=== PATIENT | male | born 1975 | race Hispanic/Latino ===

== ENCOUNTER 2017-06-20 09:53 | Day surgery (SDC) | payer OTHER ==
[2017-06-13 09:51] VITALS: BMI 36.5
[2017-06-20] MEDS ORDERED: Midazolam 2 MG/2 ML VIAL ONE (12:34)
[2017-06-20] MEDS ORDERED: Propofol 10 mg/ml Inj (20 ML) ONE (12:34)
[2017-06-20] MEDS ORDERED: ceFAZolin IV 1 gm in Dextrose 2 GM/100 ML BAG IVPB ONE (12:41)
[2017-06-20] MEDS ORDERED: Rocuronium 10 mg/ml (5 ml) ONE ×2 (12:42→13:29)
[2017-06-20] MEDS ORDERED: ePHEDrine 50 mg/ml Inj ONE (13:30)
[2017-06-20] MEDS ORDERED: Neostigmine Methylsulfate 3mg/3ml Syringe IV ONE (15:57)
[2017-06-20] MEDS ORDERED: EPINEPHrine 1 mg/ml (1:1000) Inj ONE (15:57)
[2017-06-20] MEDS: HYDROmorphone 0.5 mg/0.5 ml ISec IVP PRN ×3 (16:35→17:08)
[2017-06-20] MEDS ORDERED: Bupivacaine HCl 0.5% PF (10 ml) Inj ONE ×2 (17:38→17:39)
[2017-06-20] MEDS ORDERED: Lidocaine 2% Inj (20ml) ONE (17:39)
--- NOTE | 2017-06-20 17:56 | PCM.ANESB1 ---
Interscalene Block - Brachial Plexus Date of Procedure: 06/20/17 Anesthesiologist: fatou Pre-Procedure Diagnosis: s/p left shoulder scope Post-Procedure Diagnosis: same Procedure Performed: Interscalene Block of Brachial Plexus Left - Procedure Interscalene Block of Brachial Plexus: This procedure was explained to the patient that it is for post-operative pain management. Consent was obtained after a thorough discussion with the patient regarding the benefits and possible complications of local anesthetic block of the Brachial Plexus at the Interscalene area. The patient was brought to the Operating Room and standard monitors were applied. Time out was held with the circulating nurse to confirm the correct surgery and appropriate block. After applying Oxygen by nasal cannula and administering IV Sedation, the patient's head was gently rotated away from the _left operative shoulder and the anterior scalene groove was carefully palpated. The ultrasound transducer was then applied to the skin in the transverse plane and the brachial plexus was visualized lateral to the carotid artery and in between the anterior and middle scalene muscles. After identification,the anterior lateral portion of the neck was prepped with Betadine solution three times and Lidocaine 1% was injected subcutaneously for topical analgesia. At this point, a # 22 gauge Stimuplex 2 inches insulated needle was inserted into the interscalene groove and directed in a caudal and midline direction. The needle was inserted lateral to the ultrasound transducer in-plane towards the brachial plexus in a [id number] direction. Needle advancement was performed carefully under direct ultrasound visualization. Nerve stimulator was used and twitched of the affected extremity including the hand brachialis muscles, biceps and the deltoid was obtained at a current of _0.4____MA. After repeated negative aspiration,_5____cc of___0.5%__,__Bupivacaine were injected and this was followed with _15____cc of _0.5____% ___Bupivacaine__ . Under ultrasound guidance the local anesthetics were observed surrounding the roots of the brachial plexus. The needle was removed intact and sterile dressing was applied. The patient had stable vital signs, was conscious and in no apparent distress. The patient tolerated the interscalene block of the bracheal plexus well with stable vital signs and was prepared for subsequent surgery.
[2017-06-20 21:24] VITALS: BP 116/68; PULSE 77; RESP 15; TEMP 99; O2SAT 100
--- NOTE | 2017-06-25 22:56 | PCM.SURG1 ---
Surgeon's Initial Post Op Note - Surgeon's Notes Surgeon: Isabela Cornelius MD Hair And Makeup Designer: Nicolette Ayala PA-C Type of Anesthesia: General Endo, Block [facility] Pre-Operative Diagnosis: Left shoulder. #1 SLAP tear. #2 Biceps LH tendonopathy w/ instability. #3 partial rotator cuff tear. #4 subacromial bursitis and impingement. #5 synovitis Operative Findings: Left shoulder. #1 SLAP tear (type 2). #2 Biceps LH partial tear w/ instability (partial tear and anchor and throughout intra- articular portion). #3 anterior instability GH joint (anterior - inferior / Bankart labral tear with attenuated anterior capsule and IGHL). #4 partial rotator cuff tear (no tearing greater than 25% thickness). #5 subacromial bursitis and impingement. #5 synovitis (throughout entire GH joint) Post-Operative Diagnosis: Left shoulder. #1 SLAP tear (type 2). #2 Biceps LH partial tear w/ instability (partial tear and anchor and throughout intra- articular portion). #3 anterior instability GH joint (anterior - inferior / Bankart labral tear with attenuated anterior capsule and IGHL). #4 partial rotator cuff tear (no tearing greater than 25% thickness). #5 subacromial bursitis and impingement. #5 synovitis (throughout entire GH joint) Operation Performed: Left shoulder: #1 open subpect biceps long head tenodesis. #2 arthroscopic extensive debridement (including chondroplasty humeral head, extensive synovectomy, biceps tenotomy, debridement partial rotator cuff and subscap tendon tears). #3 arthroscopic anterior stabilization / capsulorrhaphy/ Bankart labral repair. #4 arthroscopic SLAP repair. #5 arthroscopic subacromial decompression w/ acromioplasty. #6 arthroscopic PRP injection intra-articular Specimen/Specimens Removed: specimen= none. complications= none. implants= Arthrex #1 biceps biocomposite tenodesis screw 7mm. #2 pushlock 2.9mm labral biocomposite anchors x3 for Bankart repair, x2 for SLAP repair, 5 total. #3 labral tape Estimated Blood Loss: EBL {In ML}: 10 Blood Products Given: N/A Drains Used: No Drains Post-Op Condition: Good Date of Surgery/Procedure: 06/20/17 Time of Surgery/Procedure: 17:00
--- NOTE | 2017-07-24 05:25 | OP ---
PROCEDURE DATE: 06/20/2017 PREOPERATIVE DIAGNOSES: Left shoulder, 1. SLAP tear. 2. 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 3. Partial rotator cuff tear. 4. Subacromial bursitis. 5. Subacromial impingement. 6. Synovitis throughout all aspects of glenohumeral joint. POSTOPERATIVE DIAGNOSES: Left shoulder, 1. SLAP tear type 2. 2. Long head biceps tendon partial tear with instability (partial tear at anchor and throughout intraarticular portion of tendon). 3. Anterior instability with glenohumeral joint subluxation (anterior-inferior/Bankart labral tear with attenuated anterior capsule and inferior glenohumeral ligament). 4. Partial rotator cuff tear (no tearing greater than 25% thickness). 5. Subacromial bursitis. 6. Subacromial impingement. 7. Synovitis (throughout entire glenohumeral joint). PROCEDURES: Left shoulder, 1. Open subpectoralis biceps long head tenodesis. 2. Arthroscopic extent of debridement (including chondroplasty humeral head, extensive synovectomy, biceps tenotomy, debridement of partial rotator cuff tear and subscapularis partial tear). 3. Arthroscopic anterior stabilization/capsulorrhaphy/Bankart labral repair. 4. Arthroscopic SLAP repair. 5. Arthroscopic subacromial decompression with acromioplasty. 6. Arthroscopic intraarticular PRP injection. SURGEON: Isabela Cornelius MD BLOCKER AUTOMATIC: Nicolette Ayala PA-C JUSTIFICATION FOR BLOCKER AUTOMATIC: Nicolette Ayala is a certified physician surgery assistant, whose skilled surgical service was an absolute necessity for successful completion of the procedure as he provided skilled surgical assistance with positioning of the patient, positioning of extremity, management of the surgical hui, retraction of the neurovascular structures, preparation of the proximal humerus, biceps tenodesis site, preparation of proximal long head biceps tendon, placement of fixation and finalization of biceps tenodesis, passes of suture and arthroscopic SLAP repair, passes of suture and placement of anchors for arthroscopic anterior stabilization/Bankart labral repair/capsulorrhaphy, handling of arthroscopic equipment and management of subacromial decompression and acromioplasty, extensive debridement, wound closure, placement and fitting of shoulder immobilizer sling. Nicolette Ayala was present for the entire case and was an absolute necessity for the successful completion of the procedure. TYPE OF ANESTHESIA: General endotracheal anesthesia with a postop regional nerve block placed by anesthesia staff in PACU. SPECIMENS: None. COMPLICATIONS: None. IMPLANTS: Arthrex, 1. Biceps biocomposite tenodesis screw, 7 mm in size. 2. PushLock 2.9 mm labral biocomposite anchors (three anchors used for Bankart repair/capsulorrhaphy/anterior stabilization, two anchors used for SLAP repair, 5 anchors in total with labral tape). ESTIMATED BLOOD LOSS: 10 mL. DRAINS: None. COMPLICATIONS: None. DISPOSITION: The patient was extubated and transferred to the PACU in stable condition and tolerated the procedure well. INDICATIONS FOR SURGERY: The patient is a 41-year-old male who is right-hand dominant, who presents to the office for the first time under my care with a past medical history of diabetes and hypertension, who presents to the office for the first time under my care on 04/14/2017 with left shoulder pain and dysfunction. This is a workmen's comp case with an injury at work that occurred on 03/26/2017. The patient works at the [employer]. He states that on 03/26/2017, he was at work at the [employer] when the doors opened up and he noticed that one was jammed. He attempted to free the jammed door by tugging on it which resulted in immediate 10/10 pain localized to the anterior and lateral aspects of his shoulder with a loud pop that he heard. The pain progressively worsened and he has had significant difficulty with ADLs and any use of the left arm since then. X-rays taken in the office on 04/14/2017 were negative for any fracture dislocation and no evidence of arthritis with no significant deformity or malalignments. He was referred for an MR arthrogram which was done at [facility] on 04/17/2017 which was read as, 1. Fraying and increased signal seen within and at the bursal aspect of the distal supraspinatus tendon suggestive for partial bursal surface fraying/tearing with an associate moderate tendinopathy. No evidence of gross full-thickness defect, tendon retraction, or muscle atrophy. 2. Increased signal within and at the undersurface of the distal infraspinatus tendon suggestive for articular surface fraying with a mild distal tendinopathy. No gross full-thickness defect, tendon retraction, or muscle atrophy. 3. [id number] distal subscapularis tendinopathy. No gross full-thickness defect, tendon retraction, or muscle atrophy. 4. Evaluation of glenoid labrum demonstrates fraying with increased signal at the level of the anterior labrum extending from its mid inferior aspect which may represent some partial tearing. Clinical correlation. Additional mild fraying at the level of the posterior-superior labrum. 5. Mild acromioclavicular joint space degenerative changes with joint space narrowing and bony hypertrophy. 6. On my review of the MRI, I noted that there was significant signal change within the substance of the proximal portion of the long head biceps tendon as well as the anterior capsule that did appear to be attenuated. 7. We started conservative treatment in the form of physical therapy and cortisone mixture injections done to the shoulder. On 04/28/2017 in my office, the patient underwent cortisone mixture injections at the subacromial space and the bicipital groove with near complete resolution of his pain immediately noted in the office that lasted a few weeks. He was referred to Physical Therapy which he was compliant with as well as antiinflammatory medication in the form of Mobic and antiinflammatory compound cream. Finally, after 2 months of conservative treatment and no overall improvement with the injections, only lasting a few weeks, the patient was very frustrated with his lack of progress and began to discuss surgical intervention. He is indicated for left shoulder surgery equal side, left shoulder arthroscopic extensor debridement, SLAP repair, possible rotator cuff repair, subacromial decompression with acromioplasty, open biceps tenodesis, and all related indicated procedures. The risks, benefits, and alternatives to the procedure were discussed at length with the patient with the risks included but not limited to infection, neurovascular damage, need for further surgery, failure of the repair, stiffness, development of chronic pain and disability, development of blood clots including DVT and PE, inability to return to preinjury level of activity and occupation, anesthesia reactions including . After answering all of his questions, he stated that he understood the risks and wished to proceed with surgery. He was referred to his primary care physician for preadmission testing and preoperative medical evaluation and the procedure was scheduled on 06/20/2017 at [facility]. He watched surgical animation videos and diagnosis animation videos at length and after answering all of his questions, states that he had a good understanding for the diagnosis as well as the procedures to be done. I reviewed at length with him the need for compliance with the postop rehabilitation protocol in order to maximize chance of having a successful outcome after surgery. PROCEDURE IN DETAIL: The patient was identified in the preoperative holding area and the left shoulder was marked for surgery. Once again, as described above, the risks, benefits, and alternatives of the procedure were discussed at length with the patient and informed consent was obtained. After brief discussion with anesthesia staff, perioperative IV antibiotics in the form of 2 g Ancef were administered, and the patient was taken to the operating room, placed on the well-padded operating room table with all bony prominences and superficial neurovascular structures well padded. An initial time-out was done with the surgeon, anesthesia staff, OR staff, all in agreement with the patient, procedure being done, and the extremity being operated on. General anesthesia was administered without difficulty or complication. Later, postoperatively in PACU, he received and underwent a postop regional nerve block as well for pain control. An examination under anesthesia was then carried out. Examination under Anesthesia: Left shoulder with full range of motion compared to contralateral shoulder. No warmth, no swelling, no erythema, skin intact. Significant anterior instability with ability to sublux the shoulder joint, grade 2 to 3, compared to the contralateral shoulder, with a positive sulcus sign. There was a palpable click at the anterior aspect of the shoulder within the bicipital groove with 90 degrees abduction and external rotation representing an unstable biceps tendon. Continuation of Procedure: With the help of anesthesia staff monitoring his hemodynamic status, the patient was brought into the upright position with all bony prominences and superficial neurovascular structures well padded in the beach-chair positioner. After we got our clearance from anesthesia staff that he was stable in the upright position, we then prepped and draped the left shoulder in sterile conditions. Final time-out was done with the surgeon, anesthesia staff, OR staff, all in agreement with the patient, procedure being done, and extremity being operated on. A 50 mL of normal saline were used to insufflate the glenohumeral joint. Posterior portal was created with stab incision through the skin, down to subcutaneous tissues down to the level of the capsule. Arthroscopic blunt trocar and cannula were inserted into the glenohumeral joint and insufflation with arthroscopic fluid was begun. Arthroscopic camera was inserted and with the use of spinal needle localization, the anterior-superior portal was created with stab incision through skin down to subcutaneous tissues down to the level of the capsule. An accessory cannula was inserted into the glenohumeral joint through the anterior portal and the joint was copiously irrigated for removal of synovial debris and better visualization. With the use of the arthroscopic probe, a diagnostic arthroscopy was then carried out. Diagnostic Arthroscopy: Attention was first turned towards the glenohumeral joint proper and the humeral head exhibited intact cartilage for the most part at its superior aspect, had a region of grade 1 to 2 chondromalacia with overlying fibrillated cartilage, but no full-thickness cartilage defect seen. The glenoid also exhibited mild grade 1 chondromalacia with no full-thickness defect seen, most notably at its most central aspect. Biceps tendon under careful evaluation exhibited significant partial tearing throughout its entire intraarticular course as well as at the biceps anchor where the tearing was the worst. The biceps tendon itself appeared to be completely subluxed out of the groove and did not move with the humeral head and external and internal rotation under direct arthroscopic visualization. The biceps tendon was indeed dislocated out of the bicipital groove. Rotator cuff exhibited partial tearing, but no full-thickness defect was seen with articular-sided partial tearing and fibrillation. Attention was then turned towards the axillary pouch, where no significant loose bodies were seen, but there was significant synovitis noted throughout the anterior, inferior, and superior aspects of the glenohumeral joint. At the posterior aspect of the humeral head, there did appear to be a small nondepressed Hill-Sachs cartilage injury pattern that would go along with a subluxation/dislocation event of the shoulder that possibly could be related to the date of injury at work with the mechanism that he describes. There was a positive drive through sign with complete anterior instability of the glenohumeral joint with attenuated anterior capsule and no visualized anterior-inferior labrum representing a complete Bankart labral tear. With the use of the arthroscopic probe, the Bankart labral tear was found to be scarred in on the anterior-inferior aspect of the glenoid rim and was reducible. All throughout the anterior capsule, was attenuated capsule tissue with a stretched out inferior glenohumeral ligament and as stated before, significant anterior instability. Arthroscopic Extensive Debridement: With the use of arthroscopic shaver and radiofrequency ablation, an extensive debridement of the glenohumeral joint was carried out including an extensive synovectomy of the anterior, inferior, and superior aspects of the glenohumeral joint while maintaining good hemostasis, removing all the inflamed synovial tissue. With the use of the arthroscopic shaver and radiofrequency ablation, a chondroplasty of the humeral head was carried out, establishing a smooth contour to the cartilage. With the use of arthroscopic shaver and radiofrequency ablation, a debridement of the partial rotator cuff tear was carried out removing the mechanical pain generator and fibrillated rotator cuff tissue on the articular surface of the rotator cuff. With the use of the scissor inserted through the arthroscopic portal, a biceps tenotomy was carried out. With the use of arthroscopic shaver and radiofrequency ablation, the bicipital anchor and remnant stump were debrided to smooth contour with the superior aspect of the labrum. Any fibrillated and complex tearing of the labrum whether it was the SLAP zone of injury or the Bankart zone of injury, were then carefully debrided and removed, leaving behind the healthy labral tissue that would be amenable to Bankart repair and SLAP repair in the upcoming dictation. Arthroscopic Anterior Stabilization/Capsulorrhaphy/Bankart Repair: With the use of the arthroscopic freer elevator, the underlying Bankart labral injury was freed from the anterior-inferior glenoid rim and grasped with the grasper and appeared to be reducible back to its ute position. The anterior-inferior capsule and inferior glenohumeral ligament appeared to be completely attenuated, but amenable to plication and capsulorrhaphy. With the use of the Arthrex suture passer, we were able to pass a wire around the freed up anterior-inferior labrum and capsule, and inferior glenohumeral ligament, advancing from the inferior position to a more superior position at the 6 o'clock position. Once the wire was passed around this zone of capsule, inferior glenohumeral ligament and anterior-inferior labrum, a labral tape was then passed around the soft tissue and a instructor pilot drill site was then passed at the 6 o'clock position on the glenoid base to place the Knotless 2.9 mm PushLock BioComposite anchor from Arthrex which was placed successfully with good tension achieved and a successful capsulorrhaphy/inferior glenohumeral ligament tightening/Bankart labral repair and anterior stabilization achieved at the 6 o'clock position. These steps were then repeated at the 7 o'clock position and the 8/9 o'clock position placing three anchors in total with their associated labral tapes advancing the inferior glenohumeral ligament and capsule tightening the anterior structures providing stability and essentially producing a stable arthroscopic anterior stabilization/capsulorrhaphy/Bankart repair with placement of three Knotless BioComposite PushLock anchors dedicated to the anterior stabilization and capsulorrhaphy with advancement of the inferior glenohumeral ligament and tightening of the anterior capsule. Once we were done with placement of these three anchors and their suture techniques, the anterior-superior structures of the glenohumeral joint, the drive through sign was no longer apparent and the humeral head was reduced back to the glenoid. We then turned our attention to the continuation of the labral repair in the form of a SLAP repair as an independent part of the procedure. Arthroscopic SLAP Labral Repair: Above the equator of the glenoid at the 9 o'clock to 12 o'clock position, there was a type 2 SLAP tear with good quality tissue amenable to repair. The repair did extend beyond the bicipital anchor, but after release of the biceps tendon and future biceps tenodesis, we did not see a reason to go beyond the 1 o'clock position for the fixation of the labrum as good stability was achieved with placement of two anchors at the 10 o'clock position and the 11 o'clock position on the glenoid base. With the use of the Arthrex suture passer, the wire was passed around the labrum at the 10 o'clock position and a labral tape was passed. The drill was used to drill a instructor pilot hole for placement of the 2.9 mm PushLock BioComposite anchor Knotless from Arthrex. The suture was placed in the anchor and a Knotless anchor with tightening and successful repair of the SLAP tear at the 10 o'clock position was carried out successfully with good fixation achieved. This step was then repeated at the 11 o'clock position with effectively a stable SLAP repair resulting with good fixation and stability of the glenoid labrum achieved. With the use of arthroscopic shaver radiofrequency ablation, posterior aspect of the SLAP tear was debrided, establishing a smooth contour and removing the fibrillated complex tearing of the SLAP tear. The posterior aspect of the SLAP tear did not appear detached and after the biceps tenodesis and tenotomy was carried out, there was no reason for any further anchor placement beyond the 1 o'clock position. After all intraarticular work at the glenohumeral joint was completed and the extensive debridement was carried out to satisfaction while maintaining good hemostasis and a successful anterior stabilization/capsulorrhaphy/Bankart repair was carried out and a successful SLAP repair was carried out, we then turned our attention to the subacromial space. Subacromial Decompression with Acromioplasty: The arthroscopic camera was then inserted into the subacromial spacing with the use of spinal needle localization and accessory lateral portal was created with stab incision through the skin down to subcutaneous tissue down to the level of the subacromial bursa. Arthroscopic shaver and radiofrequency ablation were then used to perform a subacromial decompression/bursectomy removing the inflamed thick bursa tissue overlying the rotator cuff tendons. Once the bursectomy was carried out to satisfaction, the underlying rotator cuff tendons were carefully evaluated and indeed once again, there was significant tendinopathy, but no full-thickness rotator cuff tear was seen or found. The overlying acromion causing impingement points was identified and with the use of an arthroscopic bur, a subacromial acromioplasty was carried out successfully removing the impingement points of the overlying acromion onto the rotator cuff and impingement in the subacromial space while maintaining good hemostasis. Once the acromioplasty was carried out to satisfaction with the use of the arthroscopic bur, the arthroscopic shaver and radiofrequency ablation were used to complete the subacromial decompression while maintaining good hemostasis. Arthroscopic Intraarticular PRP injection: With the help of anesthesia staff, 10 mL of PRP were obtained from the peripheral venous stick. The blood was spun in the Arthrex centrifuge and 10 mL of PRP were obtained. The PRP was divided between the subacromial space and glenohumeral joint with intraarticular injection under direct visualization through the arthroscopic camera placed, 5 mL of PRP, followed by placement of 5 mL of PRP in the subacromial space under direct arthroscopic visualization. Once this was carried out to satisfaction, all arthroscopic portals were reapproximated with two plain 0 Vicryl suture for subcutaneous tissue, followed by three plain 0 Monocryl suture for skin. We then turned our attention to the open part of the procedure. Open Biceps Tenodesis: A 3 cm incision was made in line with the long access of the arm, starting at the inferior aspect of the pectoralis major tendon as it crosses the axilla. Incision was made through the skin down to subcutaneous tissue while maintaining good hemostasis down to the deltopectoral fascia. Blunt dissection was carried out developing the deltopectoral fascia and retracting the cephalic vein laterally. Blunt digital palpation was carried out to the proximal humerus shaft and the long head biceps tendon was identified and brought into the surgical field. The tendon was carefully evaluated and all the proximal disease of the biceps tendon tissue was resected. With the elbow in flexion, good tension was achieved and optimal positioning for the subpectoralis biceps tenodesis docking site of the proximal humerus was identified. Overlying soft tissue at the proximal humeral shaft was debrided and a guidewire was placed through the near cortex and far cortex at the docking site. A cannulated 7 mm reamer was then passed over the guidewire and the near cortex was reamed creating a 7 mm docking site for the tenodesis. Using a FiberLoop suture, a whipstitch was made at the proximal 3 cm of the biceps tendon with good tension achieved with the elbow in flexion. One end of the suture from the whipstitch was passed through the BioComposite 7 mm biceps tenodesis screw, and both the screw and the tendon were placed in the docking site essentially performing a biceps tenodesis with good fixation and stability achieved. To back up the construct, a free needle was used and the other end of the whipstitch suture was passed through the biceps tendon and tied down to the other suture. The wound was copiously irrigated and deep tissue was reapproximated with #1 Vicryl suture followed by two plain 0 Vicryl suture for subcutaneous tissue followed by three plain 0 Monocryl suture for skin. Sterile dressings were applied. The left shoulder was then placed in a shoulder immobilizer sling provided by my office. The patient was then extubated from anesthesia and transferred to PACU in stable condition and tolerated the procedure well after [facility] RATIONALE FOR CODING AND BILLIN. An arthroscopic anterior stabilization/Bankart repair/capsulorrhaphy was carried out successfully restoring stability to the glenohumeral joint and therefore was coded and billed. 2. An arthroscopic successful SLAP repair was carried out as an independent part of the procedure, and therefore, it was coded and billed. 3. An arthroscopic extensive debridement was carried out including chondroplasty of the humeral head and glenoid, debridement of the partial rotator cuff tear, debridement of the subscapularis partial tear, extensive synovectomy removing the inflamed synovial tissue from the anterior, superior, and inferior aspects of the glenohumeral joint, biceps tenodesis. The amount of time spent on the extensive debridement was that beyond what is usual and customary that goes hand in hand with a SLAP repair or Bankart repair and therefore was billed and coded as an independent part of the procedure requiring a significant surgical time to treat other pathology asides from the labral tear and instability. The extensive debridement was carried out of medical necessity to help the patient recover from this workmen's comp injury and therefore was coded and billed. 4. An arthroscopic subacromial decompression and acromioplasty was carried out successfully. 5. An arthroscopic intraarticular PRP injection was carried out successfully and placed, and therefore coded and billed. 6. A shoulder immobilizer splint provided by my office was fitted and placed on the patient and therefore coded and billed. The immobilizer sling was placed out of medical necessity to protect all aspects of the surgery including the biceps tenodesis, the SLAP repair, the anterior stabilization/capsulorrhaphy/Bankart repair. Without the shoulder immobilizer sling, the surgery would be at risk and the shoulder immobilizer sling maximizes the chances of early return to work and successful outcome of the surgery and therefore, it was placed out of medical necessity and provided by my office and coded and billed. DISPOSITION: The patient will be discharged home once he has recovered from anesthesia. He was given a prescription for Percocet for pain control, instructed to keep the left arm and the shoulder immobilizer sling at all times. He was instructed to be strict nonweightbearing to the left upper extremity. He was instructed to keep the dressing and the sling on at all times, clean, dry, and intact until he follows up in my office at [facility] and already has his postoperative appointment set up. He will contact me directly with any questions or concerns. Isabela Cornelius MD [facility] # [id number]
== END 2017-06-20 19:40 | disposition home or self-care (01) ==
LOC: C.SDS 09:53
PROVIDERS: ATTEND Student in an Organized Health Care Education/Training Program
DX: S43.432D Superior glenoid labrum lesion of left shoulder, subsequent encounter (principal); S46.812D Strain of other muscles, fascia and tendons at shoulder and upper arm level, left arm, subsequent encounter; M75.52 Bursitis of left shoulder; M75.42 Impingement syndrome of left shoulder; M75.22 Bicipital tendinitis, left shoulder; M75.112 Incomplete rotator cuff tear or rupture of left shoulder, not specified as traumatic; M75.50 Bursitis of unspecified shoulder; M65.9 Synovitis and tenosynovitis, unspecified; I10 Essential (primary) hypertension; E11.9 Type 2 diabetes mellitus without complications
CPT/HCPCS: 29806; 29807; 29826; J0171; J0690; J1100; J1170; J2001; J2250; J2405; J2704; J2710; J3010